=== PATIENT | female | born 1995 | race African-American/Black ===

== ENCOUNTER 2017-05-01 14:51 | Emergency (ER) | payer SELFPAY ==
--- NOTE | ~2017-05-01 | US134 ---
[facility] A Service of [facility] RADIOLOGY TEXT RESULTS PATIENT: LINDA DO LOCATION: SED : [birth year] UNIT #: [id number] AGE: [address]: Denisse Munguia APRN SEX: F ORDER DR: [id number] [address] [address] [id number] MR#: [id number] Acc #: [id number] NAME: LINDA DO : 1995 SEX: F STUDY DATE/TIME: 05/01/2017 15:38 UNIT: SED ROOM: STUDY DESCRIPTION: Transvaginal Attending Physician: Denisse Munguia A.P.R.N. Ordering Physician: Denisse Munguia A.P.R.N. Primary Care Physician: Herberth Monterroso M.D. MEDICAL IMAGING REPORT This report is preliminary unless electronic signature is present. EXAM Transvaginal pelvic ultrasound HISTORY Pelvic pain for 3 - 4 days with irregular bleeding 1.5 months. The patient thinks her IUD is out of place. FINDINGS Transvaginal imaging was performed. The echogenic intrauterine device is normally positioned in the endometrial cavity. The uterus is 8.8 x 5.8 x 6.0 cm and appears normal. The right ovary is 2.3 x 3.5 x 3.8 cm, and the left ovary is 4.9 x 2.3 x 2.4 cm and appeared normal. There is normal flow. There is no free fluid. IMPRESSION 1. The patient's IUD appears to be in good position within the endometrial cavity. 2. The study is otherwise normal. Dictated by... Christopher Bertrand M.D. THIS IS AN ELECTRONICALLY VERIFIED REPORT Christopher Bertrand M.D. at 05/02/2017 9:06 AM REY/giorgio TD: 05/02/2017 00:14 [facility] A Service of [facility] RADIOLOGY TEXT RESULTS PATIENT: LINDA DO LOCATION: [facility] [place] : [birth year] UNIT #: [id number] AGE: [address]: Denisse Munguia APRN SEX: F ORDER DR: JOB #: [id number] MEDICAL IMAGING REPORT Page 1 of 1
[~2017-05-01 14:51] MED LIST: FLEXERIL10 MG PO; VOLTAREN75 MG PO; ZITHROMAX PO
[2017-05-01] MEDS ORDERED: NO MEDICATIONS (15:05)
[2017-05-01 15:57] LABS: URINE SOURCE CLEAN CATCH
[2017-05-01 16:02] LABS: URINE APPEARANCE CLOUDY; URINE BILIRUBIN NEG (NEG); URINE BLOOD 3+ (NEG); URINE COLOR AMBER; URINE GLUCOSE NEG (NORM); URINE KETONE NEG (NEG); URINE NITRATE NEG (NEG); URINE PH 5.5 (5-8); URINE PROTEIN 1+ (NEG); URINE SPECIFIC GRAVITY >=1.030 (1.003-1.035)
[2017-05-01 16:08] LABS: MICRO INDICATED? YES
[2017-05-01 16:09] LABS: CULTURE INDICATED? YES; URINE BACTERIA 1+ (NEG); URINE LEUKOCYTE ESTERASE TRACE (NEG); URINE RBC INNUM /[HPF] (0-2); URINE SQUAMOUS EPITHELIAL CELL FEW /[HPF]
[2017-05-01 16:10] LABS: URINE MUCUS PRESENT
== END 2017-05-01 17:05 | disposition home or self-care (01) ==
LOC: SED 14:51
PROVIDERS: Nurse Practitioner Family
DX: N93.9 Abnormal uterine and vaginal bleeding, unspecified (principal); Z97.5 Presence of (intrauterine) contraceptive device
CPT/HCPCS: 76830; 81003; 84703; 87086; 99284